=== PATIENT | male | born 1965 ===

== ENCOUNTER 2025-01-09 08:42 | Outpatient (RCR) | payer BC, SELFPAY | END 2025-01-09 23:59 | disposition home or self-care (01) | LOC: CRHB 08:42 | PROVIDERS: ATTENDING PHYSICIAN Internal Medicine Advanced Heart Failure and Transplant Cardiology | DX: Z95.4 Presence of other heart-valve replacement (principal) | CPT/HCPCS: 93798; G0422 ==

== ENCOUNTER 2025-02-09 08:39 | Outpatient (RCR) | payer BC, SELFPAY | END 2025-02-09 23:59 | disposition home or self-care (01) | LOC: CRHB 08:39 | PROVIDERS: ATTENDING PHYSICIAN Internal Medicine Advanced Heart Failure and Transplant Cardiology | DX: Z95.2 Presence of prosthetic heart valve (principal) | CPT/HCPCS: 93797; 93798; G0422 ==

== ENCOUNTER 2025-03-11 08:54 | Outpatient (RCR) | payer BC, SELFPAY | END 2025-03-11 23:59 | disposition home or self-care (01) | LOC: CRHB 08:54 | PROVIDERS: ATTENDING PHYSICIAN Internal Medicine Advanced Heart Failure and Transplant Cardiology | DX: Z95.2 Presence of prosthetic heart valve (principal) | CPT/HCPCS: 93797; 93798; G0422 ==

== ENCOUNTER → 2025-03-17 13:31 | Outpatient (REF) | payer BC, SELFPAY | LOC: RCS 13:31 | PROVIDERS: ATTENDING PHYSICIAN Ophthalmology | DX: Z01.810 Encounter for preprocedural cardiovascular examination (principal) | CPT/HCPCS: 93005 ==

== ENCOUNTER 2025-03-18 06:30 | Outpatient (RCR) | payer BC, SELFPAY | END 2025-03-18 11:57 | disposition home or self-care (01) | LOC: CRHB 06:30 | PROVIDERS: ATTENDING PHYSICIAN Internal Medicine Advanced Heart Failure and Transplant Cardiology | DX: Z95.2 Presence of prosthetic heart valve (principal) | CPT/HCPCS: 93797; 93798 ==